=== PATIENT | female | born 1955 | race Two or more races ===

== ENCOUNTER 2017-05-13 14:35 | Outpatient (CLI) | payer MEDICARE, OTHER ==
[2017-05-13] MEDS ORDERED: SYNTHROID25 MCG ORAL (17:16)
[2017-05-13] MEDS ORDERED: CELEBREX400 M1 ORAL (17:16)
[2017-05-13] MEDS ORDERED: LEXAPRO5 MG ORAL (17:16)
[2017-05-13] MEDS ORDERED: ANASTROZOLE1 MG PO (17:16)
[2017-05-13] MEDS ORDERED: MAGNESIUM400 M1 PO (17:16)
--- NOTE | 2017-05-13 17:22 | GI Initial Consult Note ---
History of Present Illness General Date patient seen: May 13, 2017 Time patient seen: 15:00 Referring physician: CECELIA Reason for Consultation: COLONOSCOPY SCREENING Present Illness HPI 61 year old female patient referred by Dr. Peters for routine colonoscopy screening. She presents today with addition c/o of occasional constipation. Denies any weight loss or changes in dietary habits. Home Meds Reported Medications Escitalopram Oxalate (LEXAPRO) 5 Mg Tablet, 10 MG ORAL DAILY, TAB 05/13/17 Anastrozole* (ARIMIDEX*) 1 Mg Tablet, 1 MG PO DAILY, TAB 05/13/17 Magnesium Oxide (MAGNESIUM) 400 Mg Capsule, 400 MG PO, CAP 05/13/17 Celecoxib (CELEBREX) 400 Mg Capsule, 200 MG ORAL DAILY Y, #30 CAP 0 Refills 05/13/17 Levothyroxine Sodium* (SYNTHROID*) Unknown Strength Tablet, ORAL DAILY, TAB Take in the morning on an empty stomach, at least 30 minutes before food. 05/13/17 Med list reviewed/reconciled: Yes Allergies: Coded Allergies: No Known Allergies (Unverified , 05/13/17) Patient History History Provided By: Patient, Medical Record [facility] [place] Narrative Breast CA with history of left mastectomy Family History Narrative Mother >> breast CA Uncle >> colon CA @ age 48 Social History: Reports: other - coffee Review of Systems All Other Systems: negative except mentioned in HPI Physical Exam T 97.7 P 69 96 RA WT 181.8 lbs Sp02 EP Interpretation: reviewed General Appearance: well appearing, no apparent distress, alert Head: normocephalic EENT: PERRL/EOMI, normal ENT inspection Neck: full range of motion, supple Respiratory: normal breath sounds, no respiratory distress Cardiovascular: normal rate Gastrointestinal: normal inspection, non tender, soft, normal bowel sounds Rectal: deferred Musculoskeletal: normal inspection, back normal Neurologic: normal inspection, alert, oriented x3, responsive Psychiatric: normal inspection, judgement/insight normal, memory normal Skin: normal inspection, normal color, no rash, warm/dry, palpation normal Lymphatic: normal inspection, no adenopathy GI: Plan Problems: (1) Constipation (2) Colonoscopy planned Plan Colonoscopy scheduled for 05/21/17 - CLD & prep instructions given to patient. Seen with Dr. Campuzano. Thank you for referring this patient. Sirena Delgadillo N.P. May 13, 2017 17:22
== END 2017-05-13 15:05 | disposition home or self-care (01) ==
LOC: PAN 14:35
DX: K59.00 Constipation, unspecified (principal); Z85.3 Personal history of malignant neoplasm of breast; Z90.12 Acquired absence of left breast and nipple; Z80.3 Family history of malignant neoplasm of breast; Z80.0 Family history of malignant neoplasm of digestive organs
CPT/HCPCS: 99201

== ENCOUNTER 2017-05-21 07:30 | Day surgery (SDC) | payer MEDICARE, MEDICAID ==
[~2017-05-21] VITALS: Ht 152.4 cm; Wt 81.6 kg
[2017-05-21] VITALS (8 sets, daily range): BP systolic 129–156; BP diastolic 76–98
[~2017-05-21 07:30] MED LIST: ANASTROZOLE1 MG PO; CELEBREX400 M1 ORAL; LEXAPRO5 MG ORAL; MAGNESIUM400 M1 PO; SYNTHROID25 MCG ORAL
[2017-05-21] MEDS ORDERED: LEVOTHYROXINE100 MCG ORAL (08:03)
--- NOTE | 2017-05-21 09:56 | Pre-Procedure Note/Attestation ---
Pre-Procedure Note/Attestation Complete Prior to Procedure Planned Procedure: not applicable Procedure Narrative: colonoscopy Indications for Procedure Pre-Operative Diagnosis: screening colon Attestation I attest that I discussed the nature of the procedure; its benefits; risks and complications; and alternatives (and the risks and benefits of such alternatives ), prior to the procedure, with the patient (or the patient's legal community health representative). I attest that, if there was a reasonable possibility of needing a blood transfusion, the patient (or the patient's legal community health representative) was given the [facility] standardized written summary, pursuant to the [place] [employer] Blood Safety Act ([place] Health and Safety Code # 1645, as amended). I attest that I re-evaluated the patient just prior to the surgery and that there has been no change in the patient's H&P, except as documented below: PAYAL PEÑA May 21, 2017 09:56
--- NOTE | 2017-05-21 09:56 | Short Stay Surgery H&P ---
History of Present Illness History of Present Illness Chief Complaint see recent consult note HPI Maru Flaherty is a 61 year old female who was admitted on for Colon Screening Patient History Allergies: Coded Allergies: No Known Allergies (Unverified , 05/13/17) PAST MEDICAL HISTORY: Past Surgeries: Social History: Medication History Scheduled Anastrozole* (Arimidex*), 1 MG PO DAILY, (Reported) Escitalopram Oxalate (Lexapro), 10 MG ORAL DAILY, (Reported) Levothyroxine Sodium* (Levothyroxine Sodium*), 100 MCG ORAL DAILY, (Reported) Scheduled PRN Celecoxib (Celebrex), 200 MG ORAL DAILY PRN, (Reported) Miscellaneous Medications Magnesium Oxide (Magnesium), 400 MG PO, (Reported) Physical Exam Vital Signs Last Vital Signs Date Time Temp Pulse Resp B/P Pulse Ox O2 Delivery O2 Flow Rate FiO2 05/21/17 07:55 97.5 59 17 153/84 96 Room Air Plan Attestation Are the patient's medical conditions optimized for surgery? PAYAL PEÑA May 21, 2017 09:56
--- NOTE | 2017-05-21 09:58 | Anethesia Preoperative Eval ---
Anesthesia Pre-op PMH/ROS General Date of Evaluation: May 21, 2017 Time of Evaluation: 09:55 Anesthesiologist: peterson ASA Score: ASA 3 Mallampati Score Class I : Soft palate, uvula, fauces, pillars visible Class II: Soft palate, uvula, fauces visible Class III: Soft palate, base of uvula visible Class IV: Only hard plate visible Mallampati Classification: Class II Surgeon: tomas Diagnosis: colon screening Surgical Procedure: colonoscopy Anesthesia History: none Social History: smoking - former Family History: no anesthesia problems Allergies: Coded Allergies: No Known Allergies (Unverified , 05/13/17) Anesthesia Pre-op Phys. Exam Physician Exam Last Vital Signs Date Time Temp Pulse Resp B/P Pulse Ox O2 Delivery O2 Flow Rate FiO2 05/21/17 07:55 97.5 59 17 153/84 96 Room Air Constitutional: NAD Neurologic: CN 2-12 intact Cardiovascular: RRR Respiratory: CTA Gastrointestinal: S/NT/ND Airway Exam Mallampati Score: Class II MO: full Neck: supple TMD: 2fb ROM: full Teeth: intact Anesthesia Pre-op A/P Risk Assessment & Plan Assessment: asa3 Plan: mac Status Change Before Surgery: No Pre-Antibiotics Drug: HIRAL Espinoza May 21, 2017 09:58
[2017-05-21] MEDS ORDERED: NS 275ml ONE (10:00)
[2017-05-21] MEDS ORDERED: Propofol 10mg/ml 20ml IV ONE (10:00)
[2017-05-21] MEDS ORDERED: Lidocaine 1% MPF 10mg/ml 5ml ONE (10:00)
--- NOTE | 2017-05-21 10:21 | Endoscopy Procedure Note ---
Endoscopy Procedure Note Indication for Procedure: screening Procedures Performed: colonoscopy Operative Findings/Diagnosis: 3 polyps Specimen: yes Pt Tolerated Procedure Well: Yes Estimated Blood Loss: none Anesthesiologist: peterson Anesthesia: MAC Implant(s) used?: No 50 yrs or older w/o bx or poly: No 10yrs. F/U not recommended: Yes If not recommended, why?: Above average risk 10 yrs. F/U needed: Yes 18 years or older w/prev. colo: No PAYAL PEÑA May 21, 2017 10:21
[2017-05-21] MEDS ORDERED: Hydromorphone 0.5mg/0.5ml inj IVP PRN (10:30)
[2017-05-21] MEDS ORDERED: DiphenhydrAMINE 50mg/ml Inj IVP PRN (10:30)
[2017-05-21] MEDS ORDERED: Midazolam 2mg/2ml Inj IVP PRN (10:30)
[2017-05-21] MEDS ORDERED: Atropine Inj 1mg/10ml Syr IV PRN (10:30)
--- NOTE | 2017-05-21 10:36 | Immediate Post-Op Evaluation ---
Immediate Post-Op Evalulation Immediate Post-Op Evalulation Procedure: colonoscopy Date of Evaluation: May 21, 2017 Time of Evaluation: 10:34 IV Fluids: 0.9ns 500ml Blood Products: none Estimated Blood Loss: negligible Blood Pressure Systolic: 129 Blood Pressure Diastolic: 90 Pulse Rate: 55 Respiratory Rate: 18 O2 Sat by Pulse Oximetry: 100 Temperature (Fahrenheit): 97.0 Pain Score (1-10): 0 Nausea: No Vomiting: No Complications none Patient Status: awake, reacts, patent Hydration Status: adequate Drug: HIRAL Espinoza May 21, 2017 10:35
--- NOTE | 2017-05-21 11:14 | 48 Hour Post Anesthesia Eval ---
Post Anesthesia Evaluation Procedure: colonoscopy, biopsy, polypectomy Date of Evaluation: May 21, 2017 Time of Evaluation: 11:05 Blood Pressure Systolic: 135 Pulse Rate: 70 Respiratory Rate: 18 O2 Sat by Pulse Oximetry: 99 Airway: patent Nausea: No Vomiting: No Pain Intensity: 0 Hydration Status: adequate Mental Status/LOC: patient returned to baseline Follow-up care needed: ready to discharge Irasema Cruz M.D. May 21, 2017 11:14
--- NOTE | 2017-05-21 21:30 | Procedure Note ---
DATE OF PROCEDURE: 05/21/2017 SURGEON: Yogi Campuzano M.D. PROCEDURE: Colonoscopy with snare polypectomy and biopsy. ANESTHESIOLOGIST: Karissa Askew M.D. INSTRUMENT: Olympus adult flexible upper endoscope and colonoscope. INDICATION: Screening colonoscopy evaluation. The procedure, risks, benefits, and possible consequences, including hemorrhage, aspiration, perforation and infection, and alternative treatments, were explained to the patient/legal guardian by Dr. Yogi Campuzano and the patient/legal guardian understood and accepted these risks. DESCRIPTION OF PROCEDURE: After informed consent was obtained and the patient was adequately sedated, first rectal exam was performed, which was normal. Then, the scope was advanced from the rectum into the cecum, documented by appendiceal orifice, ileocecal valve, and right upper quadrant palpation. Quality of prep was very good. The patient had a total of 3 polyps, 1 in the cecum, removed with the cold biopsy forceps technique, measured about 4 mm. Next polyp was in the transverse colon, was larger about 6 mm, removed with the cold snare polypectomy technique, and there was 1 another polyp in the rectum, right above the dentate line, which was biopsied. The patient also had scattered sigmoid diverticulosis. Retroflexion of rectum showed evidence of internal hemorrhoids. SUMMARY OF FINDINGS: 1. Three colonic polyps removed. See above for details. 2. Diverticulosis. 3. Internal hemorrhoids. RECOMMENDATIONS: 1. Follow up biopsies and treat accordingly. 2. Given 3 polyps, we recommended repeat colonoscopy in 3 years. Yogi Campuzano M.D. DR: KOSTA JOB#: [id number] CC:
== END 2017-05-21 11:50 | disposition home or self-care (01) ==
LOC: GAS 07:30
DX: Z12.11 Encounter for screening for malignant neoplasm of colon (principal); D12.0 Benign neoplasm of cecum; D12.3 Benign neoplasm of transverse colon; K62.1 Rectal polyp; K57.30 Diverticulosis of large intestine without perforation or abscess without bleeding; K64.8 Other hemorrhoids; Z79.899 Other long term (current) drug therapy; Z87.891 Personal history of nicotine dependence
CPT/HCPCS: 45380; 45385; 93005; J2704; J7050; 94003; 94150